=== PATIENT | female | born 1955 | race Caucasian/White ===

== ENCOUNTER → 2016-11-03 | Outpatient (CLI) | payer BC ==
[2015-04-15 17:38] VITALS: BP 123/86
[~2016-11-03] MED LIST: ALPR1TAB6 PO; ASPI325T4 PO; DIET PILL PO; DOCU100C PO; ESOM20CA PO; ESOM5SUS PO; FLUO10CA7 PO; FLUO20CA8 PO; HYDR-2672 PO; LAMO200T PO; LAMO5TB. PO; OXYC-250 PO; OXYC20TA34 PO; OXYC30TA64 PO
--- NOTE | 2016-11-03 12:39 | RAD ---
Abdominal ultrasound, 11/03/2016: History: Hepatitis C The gallbladder is within normal limits in size. There is no sonographic evidence of cholelithiasis. The gallbladder mckeon are not thickened. No bile duct dilatation is seen. The visualized portions of the liver, pancreas, spleen and both kidneys are unremarkable. The abdominal aorta is of normal caliber. The inferior vena cava is unremarkable. No free fluid is evident in the abdomen. IMPRESSION: No significant abnormality is detected.
== END | disposition home or self-care (01) ==
LOC: US 06:47
PROVIDERS: ATTEND Internal Medicine Gastroenterology
DX: B19.20 Unspecified viral hepatitis C without hepatic coma (principal)
CPT/HCPCS: 76700

== ENCOUNTER 2018-06-02 15:28 | Emergency (ER) | payer BC, OTHER ==
[~2018-06-02] VITALS: Ht 152.4 cm; Wt 128.4 kg
[~2018-06-02 15:28] MED LIST changes: -ASPI325T4 PO; +ASPI325T8 PO; +DOCU-150 PO; -DOCU100C PO; -HYDR-2672 PO; +HYDR-2766 PO; -LAMO200T PO; +LAMO200T2 PO; -LAMO5TB. PO; +LAMO5TB.5 PO; -OXYC-250 PO; +OXYC-328 PO
[2018-06-02] MEDS ORDERED: methylPREDNISolone SOD SUCC PF 125 MG/2 ML VIAL. IV ONE (16:00)
[2018-06-02] MEDS ORDERED: IPRATRPIUM/ALBUTEROL 0.5/2.5MG 3 ML NEBU. NEB ONE (16:00)
[2018-06-02 16:27] LABS: BASO % 1 % (0-3); EOS # 0.1 x10^3/uL (0.0-0.7); EOS % 1 % (0-3); HEMATOCRIT 42.9 % (36.0-47.0); HEMOGLOBIN 14.7 g/dL (12.0-15.5); LYMPH # 3.6 x10^3/uL (1.0-4.8); LYMPH % 39 % (24-48); MEAN CORPUSCULAR HEMOGLOBIN 32 pg (25-35); MEAN CORPUSCULAR HGB CONC 34 g/dL (31-37); MEAN CORPUSCULAR VOLUME 92 fL (79-100); MONO # 0.6 x10^3/uL (0.0-1.1); MONO % 6 % (0-9); NEUT # 4.8 x10^3uL (1.8-7.7); NEUT % 53 % (31-73); PLATELET COUNT 206 x10^3/uL (140-400); RED BLOOD COUNT 4.65 x10^6/uL (3.50-5.40); RED CELL DISTRIBUTION WIDTH 15.7 % (11.5-14.5); WHITE BLOOD COUNT 9.1 x10^3/uL (4.0-11.0)
[2018-06-02 16:35] LABS: CALCIUM 9.3 mg/dL (8.5-10.1); CREATININE 0.7 mg/dL (0.6-1.0); GFR 85.1; POTASSIUM 4.2 mmol/L (3.5-5.1)
--- NOTE | 2018-06-02 16:41 | PHYS DOC ---
Past Medical History Past Medical History: Anxiety, Asthma, COPD, Depression, Hypertension Past Surgical History: , Tubal ligation, Other Additional Past Surgical Histo: Fx L)wrist with repair,R)knee replacement x 2, Arthroscopic R)arm Additional Information: 1/2 PACK Alcohol Use: None Drug Use: None Adult General Chief Complaint Chief Complaint: SHORTNESS OF BREATH HPI HPI 62-year-old female presents to ER for complaints of shortness of air. Patient was sent to ER by her PCP Dr. Bone who had called reporting pt had probable bronchitis and was having increased anxiety. Patient reports she finished a 10 day course of antibiotics 3 days ago and her symptoms have continued. Patient reports she has had nonproductive cough, intermittent shortness of air, redness , and hoarse voice. Patient states she took her Xanax this morning at 8:30 and hydrocodone at 9 AM for anxiety/pain and denies any additional medication throughout the day. Patient reports she has inhalers at home but she prefers not to use them as it makes her feel shaky. She reports she did a nebulizer treatment and 11 AM and did have improved breathing following that. Patient reports she has history of anxiety and depression this time denies any suicidal ideations. Pt reports history of COPD and she smokes approximately half pack cigarettes per day. She denies fever or chills, sore throat, earache, or fatigue. Pt denies any recent travel, hormone therapy, or past DVT/PE. Review of Systems Review of Systems Constitutional: Denies fever or chills [] Eyes: Denies change in visual acuity, redness, or eye pain [] HENT: Denies nasal congestion or sore throat [] Respiratory: Ports nonproductive cough and intermittent shortness of air Cardiovascular: Reports chest heaviness. Denies chest pain or palpitations GI: Denies abdominal pain, nausea, vomiting, bloody stools or diarrhea [] : Denies dysuria or hematuria [] Musculoskeletal: Denies back/neck pain or joint pain [] Integument: Denies rash swelling, or skin lesions [] Neurologic: Denies headache, focal weakness or sensory changes [] All other systems were reviewed and found to be within normal limits, except as documented in this note. Current Medications Current Medications Current Medications Medications (Trade) Dose Ordered Sig/Luh Start Time Stop Time Status Last Admin Dose Admin Albuterol/ Ipratropium (Duoneb) 3 ml 1X ONCE 06/02/18 16:00 06/02/18 16:01 DC 06/02/18 16:26 3 ML Methylprednisolone Sodium Succinate (SOLU-Medrol 125MG VIAL) 125 mg 1X ONCE 18 16:00 06/02/18 16:01 DC 06/02/18 16:18 125 MG Allergies Allergies Allergies Coded Allergies Type Severity Reaction Last Updated Verified adhesive Allergy Intermediate Rash 04/15/15 Yes nickel Allergy Intermediate Rash, BLISTERS 04/15/15 Yes Physical Exam Physical Exam Constitutional: Well developed, well nourished, no acute distress, non-toxic appearance. [] HENT: Normocephalic, atraumatic, bilateral external ears normal, oropharynx moist, no oral exudates, nose normal. [] Eyes: PERRLA, EOMI, conjunctiva normal, no discharge. [] Neck: Normal range of motion, no tenderness, supple, no stridor. [] Cardiovascular:Heart rate regular rhythm, no murmur [] Lungs & Thorax: Bilateral breath sounds clear to auscultation [] Abdomen: Bowel sounds normal, soft, no tenderness, no masses, no pulsatile masses. [] Skin: Warm, dry, no erythema, no rash. [] Back: No tenderness, no CVA tenderness. [] Extremities: No tenderness, no cyanosis, no clubbing, ROM intact, no edema. [] Neurologic: Alert and oriented X 3, normal motor function, normal sensory function, no focal deficits noted. [] Psychologic: Affect normal, judgement normal, mood normal. [] Current Patient Data Vital Signs Vital Signs Date Time Temp Pulse Resp B/P (MAP) Pulse Ox O2 Delivery O2 Flow Rate FiO2 06/02/18 16:28 93 Room Air 06/02/18 15:33 98.5 63 24 160/76 (104) 98.5 Lab Values Laboratory Tests Test 06/02/18 16:19 White Blood Count 9.1 x10^3/uL (4.0-11.0) Red Blood Count 4.65 x10^6/uL (3.50-5.40) Hemoglobin 14.7 g/dL (12.0-15.5) Hematocrit 42.9 % (36.0-47.0) Mean Corpuscular Volume 92 fL (79-100) Mean Corpuscular Hemoglobin 32 pg (25-35) Mean Corpuscular Hemoglobin Concent 34 g/dL (31-37) Red Cell Distribution Width 15.7 % (11.5-14.5) H Platelet Count 206 x10^3/uL (140-400) Neutrophils (%) (Auto) 53 % (31-73) Lymphocytes (%) (Auto) 39 % (24-48) Monocytes (%) (Auto) 6 % (0-9) Eosinophils (%) (Auto) 1 % (0-3) Basophils (%) (Auto) 1 % (0-3) Neutrophils # (Auto) 4.8 x10^3uL (1.8-7.7) Lymphocytes # (Auto) 3.6 x10^3/uL (1.0-4.8) Monocytes # (Auto) 0.6 x10^3/uL (0.0-1.1) Eosinophils # (Auto) 0.1 x10^3/uL (0.0-0.7) Basophils # (Auto) 0.0 x10^3/uL (0.0-0.2) Sodium Level 141 mmol/L (136-145) Potassium Level 4.2 mmol/L (3.5-5.1) Chloride Level 104 mmol/L (98-107) Carbon Dioxide Level 25 mmol/L (21-32) Anion Gap 12 (6-14) Blood Urea Nitrogen 7 mg/dL (7-20) Creatinine 0.7 mg/dL (0.6-1.0) Estimated GFR (Cockcroft-Gault) 85.1 Glucose Level 87 mg/dL (70-99) Calcium Level 9.3 mg/dL (8.5-10.1) Troponin I Quantitative < 0.017 ng/mL (0.000-0.055) Laboratory Tests 06/02/18 16:19 Laboratory Tests 06/02/18 16:19 EKG EKG EKG obtained 06/02/18 at [address] Orosco Sinus Rhythm Nonspecific T wave abnorm. Vent rate 60 Radiology/Procedures Radiology/Procedures [] Course & Med Decision Making Course & Med Decision Making Pertinent Labs and Imaging studies reviewed. (See chart for details) 1711: On reevaluation patient reports she has had improvement in her breathing after DuoNeb and dose of steroid. Pt has nonprod. cough during re-eval. Discussed test results with patient and her who has arrived bedside. No acute findings on x-ray and EKG with no acute ST elevation or STEMI. Troponin was <0.017 and other labs unremarkable. Discussed plans for home discharge with patient follow-up with her primary care physician this week if symptoms don't improve. Education provided on signs and symptoms to return to ER for. Patient reports her doctor had called in nebulizer medication. In-depth conversation had with patient regarding smoking, COPD, and discharge plan. Patient will be sent home with Medrol Dosepak. Discussed antibiotics but at this time with patient having negative chest x-ray, afebrile, and no improvement with symptoms following 10 day course of antibiotics discussed COPD and viral symptoms. Dragon Disclaimer Dragon Disclaimer This electronic medical record was generated, in whole or in part, using a voice recognition dictation system. Departure Departure Impression: Primary Impression: COPD (chronic obstructive pulmonary disease) Additional Impression: Cough Disposition: 01 HOME, SELF-CARE Condition: STABLE Referrals: SHANELL BONE MD (PCP) Patient Instructions: Chronic Obstructive Pulmonary Disease Exacerbation, Cough , Adult Additional Instructions: Stop smoking. Continue medications at home as previously prescribed. Use your nebulizer/inhaler as prescribed. Drink plenty of water. If you develop fever, productive cough, or with any concerns follow-up with your primary doctor or return to ER. Scripts Methylprednisolone (MEDROL) 4 Mg Tab.ds.pk 1 PKG PO UD, #1 PKG 0 Refills start prescription on 06/03/18 initial dose in ER Prov: ROYER CABALLERO APRN 06/02/18 Problem Qualifiers ROYER CABALLERO APRN Jun 02, 2018 16:41
--- NOTE | 2018-06-02 16:55 | RAD ---
Chest, 2 views, 06/02/2018: HISTORY: Shortness of breath Comparison is made to a study from 08/03/2014. The heart size and pulmonary vascularity are normal. No pulmonary infiltrate is seen. There is no evidence of pleural fluid. IMPRESSION: No acute cardiopulmonary abnormality is detected. Electronically signed by: Jason Calhoun MD (06/02/2018 4:52 PM) [facility]
[2018-06-02 17:00] VITALS: BP 127/71
[2018-06-02] MEDS ORDERED: METH4TAB2 PO (17:34)
--- NOTE | 2018-06-04 15:23 | EKG ---
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
== END 2018-06-02 17:37 | disposition home or self-care (01) ==
LOC: ER 15:28
DX: J44.9 Chronic obstructive pulmonary disease, unspecified (principal); F41.9 Anxiety disorder, unspecified; F32.9 Major depressive disorder, single episode, unspecified; I10 Essential (primary) hypertension; F17.210 Nicotine dependence, cigarettes, uncomplicated; Z88.8 Allergy status to other drugs, medicaments and biological substances
CPT/HCPCS: 36415; 71046; 80048; 84484; 85025; 93005; 94640; 96374; 99285; J2930; J7620